=== PATIENT | male | born 2000 | race Caucasian/White ===

== ENCOUNTER 2019-08-28 08:00 | Outpatient (CLI) | payer OTHER, SELFPAY ==
[2019-08-28 08:19] LABS: Basophils Absolute Auto 0.1 K/mm3 (0.0-0.1); Eosinophils Absolute Auto 0.1 K/mm3 (0-0.3); Eosinophils Percent Auto 1.6 % (0-4.4); Hematocrit 45.9 % (42.0-52.0); Hemoglobin 15.9 g/dL (14.0-18.0); Immature Granulocyte Absolute 0.01 K/mm3 (0.00-0.031); Immature Granulocyte Percent A 0.2 % (0-0.5); Lymphocytes Absolute Auto 1.81 K/mm3 (0.9-3.2); Lymphocytes Percent Auto 37.1 % (18.3-44.2); Mean Corpuscular HGB Conc 34.6 g/dl (32-36); Mean Corpuscular Hemoglobin 31.1 pg (26-34); Mean Corpuscular Volume 89.8 fl (80-100); Monocytes Absolute Auto 0.6 K/mm3 (0.1-0.6); Monocytes Percent Auto 11.5 % (2.6-8.5); Neutrophils Absolute Auto 2.4 K/mm3 (1.3-6.7); Neutrophils Percent Auto 48.6 % (45.5-73.1); Platelet Count Result 181 k/mm3 (150-375); Red Blood Count 5.11 M/mm3 (4.6-6.20); Red Cell Distribution Width 11.6 % (11.5-14.5); White Blood Count 4.9 K/mm3 (4.5-10.0)
[2019-08-28 08:35] LABS: Alanine Aminotransferase 15 U/L (4-50); Albumin Level 4.8 g/dL (3.5-5.1); Alkaline Phosphatase 46 U/L (38-126); Aspartate Amino Transferase 27 U/L (17-59); Bilirubin,Total 2.3 mg/dL (0.2-1.3); Blood Urea Nitrogen 17 mg/dL (9-20); Calcium 9.4 mg/dL (8.4-10.2); Carbon Dioxide 28 mmol/L (22-30); Chloride 104 mmol/L (98-107); Cholesterol 202 mg/dL (0-200); Estimated Glomerular Filt Rate > 60; Glucose 98 mg/dL (75-110); HDL Direct 41 mg/dL; Potassium 3.9 mmol/L (3.4-5.0); Sodium 140 mmol/L (137-145); Triglycerides 47 mg/dL (<150)
[2019-08-28 08:46] LABS: LDL Cholesterol Direct 137 mg/dL
== END 2019-08-28 08:01 | disposition home or self-care (01) ==
DX: Z00.00 Encounter for general adult medical examination without abnormal findings (principal); Z83.49 Family history of other endocrine, nutritional and metabolic diseases
CPT/HCPCS: 36415; 80053; 80061; 85025

== ENCOUNTER 2019-09-28 11:19 | Emergency (ER) | payer OTHER, SELFPAY ==
[2019-09-28 11:38] VITALS: BP 138/66; PULSE 72; RESP 16; TEMP 37.4; O2SAT 99
--- NOTE | 2019-09-28 11:48 | ED.URI ---
HPI - URI/Sore Throat General Chief Complaint: Upper Respiratory Infection Stated Complaint: sore throat Time Seen by Provider: 09/28/19 11:48 Source: patient Mode of arrival: ambulatory Limitations: no limitations History of Present Illness HPI Narrative: Bruno Doyle is a 18 yo male with a PMH of borderline high cholesterol who comes with severe sore throat x 5 days- is getting worse and hard for him to swallow. States that he has had strep numerous times in the past Related Data Allergies Allergy/AdvReac Type Severity Reaction Status Date / Time No Known Allergies Allergy Verified 05/19/11 12:46 Review of Systems Review of Systems: Narrative: CONSTITUTIONAL: Denies fever, chills, sweats. EYES: Denies visual changes, redness, discharge. ENT: Denies rhinorrhea, congestion, has sore throat, no otalgia. CARDIOVASCULAR: Denies chest pain, palpitations, edema. RESPIRATORY: Denies dyspnea, wheezing, cough GASTROINTESTINAL: Denies abdominal pain, nausea, vomiting, diarrhea. GENITOURINARY: Denies dysuria, hematuria, abnormal discharge SKIN: Denies rash or itching. NEUROLOGIC: Denies numbness, or focal weakness. PSYCHIATRIC: Denies anxiety or depression. [facility] Family History Family History Other High cholesterol Social History Social History (Updated 09/28/19 @ 12:00 by Janice Reynoso CNP) Smoking status: Never smoker Alcohol intake: current Comments At time of signature, I agree with nursing past medical, surgical, social and family history. There is no relevant family history pertinent to the presenting complaint. Exam Narrative: Exam Narrative: GENERAL: This is a well-nourished, well-developed patient, in mild distress. HEAD: normocephalic, atraumatic. EYES:Sclera clear/white. Vision is grossly intact. EARS: External ears normal, auditory canals clear and without drainage, TMs normal without perforation. Hearing grossly intact. NOSE: External nose normal without nasal discharge, nares without redness, no rhinorrhea. THROAT: Mucous membranes moist, posterior pharynx erythematous with tonsilar swelling NECK: Neck supple, non-tender CARDIOVASCULAR: Regular rate and rhythm without murmurs, gallops, or rubs. RESPIRATORY: Clear to auscultation. Breath sounds equal bilaterally. No wheezes, rales, or rhonchi. GASTROINTESTINAL: Abdomen soft, non-tender, SKIN: warm, intact with no suspicious lesions or rash, good texture and turgor. NEURO: awake, alert, and oriented to person, place and time. There were no obvious focal neurologic abnormalities. Steady gait EXTREMITIES: Normal range of motion. BACK: Nontender without deformity Course Course Emergency Course: Strep test-negative Prednisone and penicillin started- directions given to pt- TAKE ALL ANTIBIOTIC GIVEN. CALL PRIMARY MD TODAY AND SCHEDULE FOLLOW UP APPOINTMENT INCREASE FLUIDS MAY TAKE TYLENOL (NO MORE THAN 4,000MGS DAILY) EVERY 4-6 HOURS AND/OR IBUPROFEN (TAKE WITH FOOD) EVERY 6-8 HOURS NEEDED FOR FEVER OR PAIN WASH YOUR HANDS TO PREVENT SPREADING OF ILLNESS Vital Signs Vital signs: Vital Signs Temperature 99.3 F 09/28/19 11:38 Pulse Rate 72 09/28/19 11:38 Respiratory Rate 16 09/28/19 11:38 Blood Pressure 138/66 09/28/19 11:38 Pulse Oximetry 99 09/28/19 11:38 Temperature 99.3 F 09/28/19 11:38 Pulse Rate 72 09/28/19 11:38 Respiratory Rate 16 09/28/19 11:38 Blood Pressure 138/66 09/28/19 11:38 Pulse Oximetry 99 09/28/19 11:38 MDM - URI/Sore Throat Differential Diagnosis Differential diagnosis: Likely upper respiratory infection, bronchitis, pharyngitis and other Lab Data Labs: Strep Screen Presumptive Negative *(Reference Range: Negative)* Discharge Plan Discharge Clinical Impression: Pharyngitis Qualifiers: Pharyngitis/tonsillitis etiology: unspecified etiology Qualified Code(s): J02.9 - Acute pharyn
== END 2019-09-28 12:08 | disposition home or self-care (01) ==
PROVIDERS: Emergency Provider Nurse Practitioner; PCP Nurse Practitioner Family
DX: J02.9 Acute pharyngitis, unspecified (principal)
CPT/HCPCS: 87081; 87880; 99213; G0463

== ENCOUNTER 2019-11-21 09:08 | Outpatient (CLI) | payer OTHER, SELFPAY ==
[2019-11-21 10:03] LABS: Alanine Aminotransferase 33 U/L (4-50); Albumin Level 4.6 g/dL (3.5-5.1); Alkaline Phosphatase 38 U/L (38-126); Anion Gap 6 mmol/L (8-16); Aspartate Amino Transferase 38 U/L (17-59); Bilirubin,Total 1.1 mg/dL (0.2-1.3); Blood Urea Nitrogen 21 mg/dL (9-20); Calcium 9.1 mg/dL (8.4-10.2); Carbon Dioxide 28 mmol/L (22-30); Chloride 105 mmol/L (98-107); Estimated Glomerular Filt Rate > 60; Glucose 95 mg/dL (75-110); Potassium 4.3 mmol/L (3.4-5.0); Sodium 139 mmol/L (137-145)
== END 2019-11-21 09:09 | disposition home or self-care (01) ==
DX: R89.9 Unspecified abnormal finding in specimens from other organs, systems and tissues (principal)
CPT/HCPCS: 36415; 80053

== ENCOUNTER 2020-05-29 09:21 | Outpatient (CLI) | payer OTHER, SELFPAY ==
[2020-05-29 10:03] LABS: Cholesterol 225 mg/dL (0-200); HDL Direct 41 mg/dL; Triglycerides 88 mg/dL (<150)
[2020-05-29 10:15] LABS: LDL Cholesterol Direct 141 mg/dL
== END 2020-05-29 09:22 | disposition home or self-care (01) ==
DX: E78.5 Hyperlipidemia, unspecified (principal)
CPT/HCPCS: 36415; 80061

== ENCOUNTER 2021-04-11 13:54 | Outpatient (CLI) | payer OTHER, SELFPAY ==
[2021-04-11 14:47] LABS: Basophils Absolute Auto 0.1 K/mm3 (0.0-0.1); Basophils Percent Auto 1.1 % (0.2-1.2); Eosinophils Absolute Auto 0.1 K/mm3 (0-0.3); Eosinophils Percent Auto 1.7 % (0-4.4); Hematocrit 43.5 % (42.0-52.0); Hemoglobin 15.1 g/dL (14.0-18.0); Lymphocytes Absolute Auto 2.01 K/mm3 (0.9-3.2); Lymphocytes Percent Auto 42.3 % (18.3-44.2); Mean Corpuscular HGB Conc 34.7 g/dl (32-36); Mean Corpuscular Hemoglobin 31.5 pg (26-34); Mean Corpuscular Volume 90.8 fl (80-100); Mean Platelet Volume 10.7 fl (7.4-10.4); Monocytes Absolute Auto 0.5 K/mm3 (0.1-0.6); Monocytes Percent Auto 10.3 % (2.6-8.5); Neutrophils Absolute Auto 2.1 K/mm3 (1.3-6.7); Neutrophils Percent Auto 44.6 % (45.5-73.1); Platelet Count Result 175 k/mm3 (150-375); Red Blood Count 4.79 M/mm3 (4.6-6.20); Red Cell Distribution Width 11.4 % (11.5-14.5); White Blood Count 4.8 K/mm3 (4.5-10.0)
[2021-04-11 14:51] LABS: Alanine Aminotransferase 23 U/L (4-50); Albumin Level 4.8 g/dL (3.5-5.1); Alkaline Phosphatase 30 U/L (38-126); Anion Gap 3 mmol/L (8-16); Aspartate Amino Transferase 31 U/L (17-59); Bilirubin,Total 1.4 mg/dL (0.2-1.3); Blood Urea Nitrogen 14 mg/dL (9-20); Calcium 9.3 mg/dL (8.4-10.2); Carbon Dioxide 29 mmol/L (22-30); Chloride 104 mmol/L (98-107); Cholesterol 239 mg/dL (0-200); Estimated Glomerular Filt Rate > 60; Glucose 90 mg/dL (65-110); HDL Direct 42 mg/dL; Potassium 4.1 mmol/L (3.4-5.0); Sodium 136 mmol/L (137-145); Triglycerides 54 mg/dL (<150)
[2021-04-11 15:02] LABS: LDL Cholesterol Direct 156 mg/dL
== END 2021-04-11 13:55 | disposition home or self-care (01) ==
LOC: ANHLAB 13:56
DX: Z00.00 Encounter for general adult medical examination without abnormal findings (principal); E78.5 Hyperlipidemia, unspecified
CPT/HCPCS: 36415; 80053; 80061; 85025

== ENCOUNTER 2021-09-30 15:26 | Outpatient (CLI) | payer OTHER, SELFPAY | END 2021-09-30 15:27 | disposition home or self-care (01) | DX: Z11.1 Encounter for screening for respiratory tuberculosis (principal) | CPT/HCPCS: 36415; 86480 ==

== ENCOUNTER 2021-10-08 16:02 | Outpatient (CLI) | payer OTHER, SELFPAY ==
[2021-10-10 13:31] LABS: NIL 0.03 IU/mL; Quantiferon TB Plus, 1T NEGATIVE (NEGATIVE)
== END 2021-10-08 16:03 | disposition home or self-care (01) ==
LOC: ANHLAB 16:05
DX: Z11.1 Encounter for screening for respiratory tuberculosis (principal)
CPT/HCPCS: 36415; 86480

== ENCOUNTER 2022-06-12 17:40 | Emergency (ER) | payer OTHER, SELFPAY ==
[2022-06-12 17:50] VITALS: BP 125/64; PULSE 74; RESP 16; TEMP 37.2; O2SAT 99
--- NOTE | 2022-06-12 18:04 | ED.WOUNDLAC ---
HPI - Wound/Laceration General Chief Complaint: Skin/Abscess/Foreign Body Stated Complaint: injury Time Seen by Provider: 06/12/22 18:04 Source: patient, RN notes reviewed and old records reviewed Mode of arrival: ambulatory Limitations: no limitations History of Present Illness HPI narrative: 21-year-old male presents to the [facility] with concerns of being scratched by his cat to his forehead and underneath right eye. Patient states that he had taken cat to the vet. Happened about 30 minutes prior to arrival Last tetanus was October of 2021 Patient tetanus UTD: Yes Related Data Allergies Allergy/AdvReac Type Severity Reaction Status Date / Time No Known Allergies Allergy Verified 06/12/22 17:58 Review of Systems Review of Systems: All systems reviewed & are unremarkable except as noted in HPI and below Constitutional: Constitutional: Reports no additional constitutional complaints Eyes: Eyes: Reports no additional eye complaints ENT: Reports system reviewed and no additional complaints, except as documented Cardiovascular: Cardiovascular: Reports no additional cardiovascular complaints, Denies chest pain and Denies dyspnea Respiratory: Respiratory: Reports no additional respiratory complaints, Denies chest congestion, Denies cough and Denies dyspnea Gastrointestinal: Gastrointestinal: Reports no additional gastrointestinal complaints, Denies abdominal pain, Denies nausea and Denies vomiting Musculoskeletal: Musculoskeletal: Reports no additional musculoskeletal complaints Integumentary/Breasts: Skin/Breast: Reports as per HPI Neurologic: Reports system reviewed and no additional complaints, except as documented Psychiatric: Psychiatric: Reports no additional psychiatric complaints Allergic/Immunologic: Allergic/Immunologic: Reports no additional allergic/immunologic complaints PMFSH Family History Family History Other High cholesterol Social History Social History Smoking status: Never smoker Alcohol intake: current Comments At the time of my signature, I reviewed and agree with the nursing past medical, surgical, social, and family history. There is no relevant family history pertinent to the patient complaint. Exam Const: General: cooperative, healthy appearing, comfortable, no acute distress, well developed, alert and well nourished Nutritional Appearance: well nourished Orientation/consciousness: patient oriented x3 Limitations: no limitations HENMT: Head: normal to inspection Ears: hearing grossly normal bilaterally and external ears normal Face/Nose/Sinus: Normal external nose present, Normal nares present, Normal nasal mucous membranes and turbinates present and normal facial exam Face and sinus: normal facial exam Mouth: Yes Normal oral and palatal mucosa present, Yes lip normal and Yes moist mucous membranes Throat: posterior oropharynx normal and uvula midline Eyes: General: appearance normal, both eyes and all related structures Alignment and Position: alignment normal Periorbital: periorbital findings normal Conjunctivae: conjunctivae normal Pupils: Equal, round and reactive pupils present EOM: EOMs intact bilaterally Neck: Neck: normal visual inspection, full ROM, no lymphadenopathy and no meningeal signs Chest: Chest palpation & inspection: normal inspection of the chest Resp: Effort & Inspection: normal respiratory effort and able to speak in complete sentences Auscultation: clear to auscultation bilaterally, no crackles, no rales, no rhonchi and no wheezes Cardio: Rate: regular rate Rhythm: regular rhythm Back/Spine/Pelvis: Cervical Spine: cervical ROM normal Thoracic/Lumbar Spine: No thoracic spinal tenderness Skin: General skin exam: normal color and no rashes or lesions noted Lesions: no lesions Rashes: no rashes Wounds: no wounds Other: Three scratches
== END 2022-06-12 18:31 | disposition home or self-care (01) ==
PROVIDERS: Emergency Provider Nurse Practitioner
DX: S00.81XA Abrasion of other part of head, initial encounter (principal); S01.411A Laceration without foreign body of right cheek and temporomandibular area, initial encounter; W55.03XA Scratched by cat, initial encounter
CPT/HCPCS: 99213; G0463

== ENCOUNTER 2022-08-03 08:44 | Emergency (ER) | payer OTHER, SELFPAY ==
[2022-08-03 08:51] VITALS: BP 126/87; PULSE 62; RESP 16; TEMP 36.7; O2SAT 100
--- NOTE | 2022-08-03 09:44 | ED.URI ---
HPI - URI/Sore Throat General Chief Complaint: Upper Respiratory Infection Stated Complaint: sore throat,congestion,ear pain,sinus pressure Time Seen by Provider: 08/03/22 09:44 Source: patient and RN notes reviewed Mode of arrival: ambulatory Limitations: no limitations History of Present Illness HPI Narrative: 21 y/o male presented for c/o cough, nasal congestion and drainage, sinus pressure and fatigue for 3 days. Denies sob, wheezing, vomiting, fever or chills. Taking multiple otc meds for symptoms. Denies sick contacts. MD elicited complaint: cough Related Data Allergies Allergy/AdvReac Type Severity Reaction Status Date / Time No Known Allergies Allergy Verified 08/03/22 08:53 Review of Systems Review of Systems: CONSTITUTIONAL: denies malaise, denies chills, sweats, fever EYES: Denies visual changes, redness, or discharge ENT: Reports rhinorrhea, congestion, sinus pain CARDIOVASCULAR: Denies chest pain, palpitations, edema RESPIRATORY: Reports cough, post nasal drainage. Denies dyspnea GASTROINTESTINAL: Denies abdominal pain, nausea, vomiting, diarrhea SKIN: Denies rash or itching MUSCULOSKELETAL: Denies myalgia [facility] Past Medical History Medical History (Updated 08/03/22 @ 14:06 by Kathy Harp APRN) No pertinent past medical history Family History Family History Other High cholesterol Social History Social History Smoking status: Never smoker Alcohol intake: current Exam Narrative: GENERAL: well-appearing HEAD: Normocephalic EYES: PERRLA, conjunctivae clear ENT: Mucous membranes moist. TMs pearly herrera with normal light reflex bilaterally; no tragal tenderness. Oropharynx erythematous without lesions or exudate, no drooling, no hoarseness, no trismus, uvula midline. No tripod positioning, muffled voice, soft palate or pharyngeal wall bulging NECK: Supple. No lymphadenopathy CHEST: Clear to auscultation, breath sounds equal. No wheezing, rhonchi, rales, or stridor. No respiratory distress, speaks in full sentences. HEART: Regular rate and rhythm. No murmur heard. SKIN: Warm, dry, no rash. NEURO: Alert and oriented x3. PSYCH: Normal mood and affect Course Course Emergency Course: Patient is aware of diagnosis, understands and agrees to treatment plan. Anticipatory guidance given. Patient agrees to follow-up as directed and is aware of reasons to seek care at the emergency department. Portions of this record may have been created with voice recognition software Level of Care: Express Care Visit Vital Signs Vital signs: reviewed MDM - URI/Sore Throat MDM Narrative Medical decision making narrative: Results of negative COVID and strep reviewed with patient. Discussed physical exam findings. Advised supportive measures and signs/symptoms to go to the ER. Pt is appropriate for outpt treatment and f/u. Differential Diagnosis Differential diagnosis: Likely upper respiratory infection, sinusitis and viral infection Lab Data Labs: Lab Results 08/03/22 Range/Units 08:52 POC SARS CoV-2 Ag Negative (Negative) Strep Screen Presumptive Negative *(Reference Range: Negative)* Discharge Plan Discharge Clinical Impression: Upper respiratory infection Patient Disposition: Home, Self-Care Condition: Stable Instructions: Upper Respiratory Infection (ED) Additional Instructions: COVID test negative today Rapid strep swab was negative today You will be notified in a few days if the culture comes back positive for strep, and appropriate antibiotics will be called in at that time. if symptoms are due to a viral illness, it is not treated with antibiotics. Viral symptoms can be present for up to 10-14 days. Recommend Flonase spray and Zyrtec for sinus congestion Cough syrup may c
== END 2022-08-03 09:55 | disposition home or self-care (01) ==
PROVIDERS: Emergency Provider Nurse Practitioner Family
DX: J06.9 Acute upper respiratory infection, unspecified (principal); Z20.822 Contact with and (suspected) exposure to COVID-19
CPT/HCPCS: 87081; 87426; 87880; 99213; C9803; G0463

== ENCOUNTER 2023-08-26 12:26 | Outpatient (CLI) | payer OTHER, SELFPAY ==
[2023-08-26 13:02] LABS: Basophils Absolute Auto 0.1 K/mm3 (0.0-0.1); Basophils Percent Auto 1.1 % (0.2-1.2); Eosinophils Absolute Auto 0.1 K/mm3 (0-0.3); Eosinophils Percent Auto 1.5 % (0-4.4); Hematocrit 44.5 % (42.0-52.0); Hemoglobin 15.3 g/dL (14.0-18.0); Immature Granulocyte Absolute 0.01 K/mm3 (0.00-0.031); Immature Granulocyte Percent A 0.2 % (0-0.5); Lymphocytes Absolute Auto 1.34 K/mm3 (0.9-3.2); Lymphocytes Percent Auto 28.6 % (18.3-44.2); Mean Corpuscular HGB Conc 34.4 g/dl (32-36); Mean Corpuscular Hemoglobin 31.5 pg (26-34); Mean Corpuscular Volume 91.8 fl (80-100); Mean Platelet Volume 10.7 fl (7.4-10.4); Monocytes Absolute Auto 0.4 K/mm3 (0.1-0.6); Monocytes Percent Auto 8.7 % (2.6-8.5); Neutrophils Absolute Auto 2.8 K/mm3 (1.3-6.7); Neutrophils Percent Auto 59.9 % (45.5-73.1); Platelet Count Result 166 k/mm3 (150-375); Red Blood Count 4.85 M/mm3 (4.6-6.20); Red Cell Distribution Width 11.9 % (11.5-14.5); White Blood Count 4.7 K/mm3 (4.5-10.0)
[2023-08-26 13:21] LABS: Alanine Aminotransferase 47 U/L (6-50); Albumin Level 4.9 g/dL (3.5-5.1); Alkaline Phosphatase 35 U/L (38-126); Anion Gap 8 mmol/L (4-12); Aspartate Amino Transferase 63 U/L (17-59); Bilirubin,Total 1.7 mg/dL (0.2-1.3); Blood Urea Nitrogen 20 mg/dL (9-20); Calcium 9.7 mg/dL (8.4-10.2); Carbon Dioxide 27 mmol/L (22-30); Chloride 105 mmol/L (98-107); Cholesterol 238 mg/dL (0-200); Estimated Glomerular Filt Rate > 60; Glucose 92 mg/dL (65-110); HDL Direct 49 mg/dL; Potassium 4.4 mmol/L (3.4-5.0); Sodium 140 mmol/L (137-145); Triglycerides 39 mg/dL (<150)
[2023-08-26 13:32] LABS: LDL Cholesterol Direct 156 mg/dL
[2023-08-26 13:50] LABS: Free T4 Free Thyroxine 1.03 ng/mL (0.78-2.19); Thyroid Stimulating Hormone 0.762 uIU/mL (0.465-4.680)
[2023-08-29 18:49] LABS: Testosterone Total 443 ng/dL (250-1100)
== END 2023-08-26 12:27 | disposition home or self-care (01) ==
DX: Z00.00 Encounter for general adult medical examination without abnormal findings (principal); R53.83 Other fatigue
CPT/HCPCS: 36415; 80053; 80061; 84403; 84439; 84443; 85025

== ENCOUNTER 2024-09-20 09:50 | Outpatient (CLI) | payer OTHER, SELFPAY ==
--- OUTSIDE RECORDS SUMMARY | 2024-09-20 09:59 | XMS_ITS | Referral Summary ---
Author Organization [facility] [place] [place] [address] [place] [address] Care Team Providers Care Cost Estimating Clerk Name Role Phone Mendez Rahman Primary Care Provider Encounters Date Type Department Care Team Description 08/21/2024 Orders Only [facility] Medical [facility] Family Medicine [address] [place] [phone] Mendez Rahman PA 08/21/2024 Telephone [facility] Family Medicine [address] [place] [phone] Mendez Rahman PA Medical Question/Miscellaneous from Last 3 Months Allergies No known active allergies Medications rosuvastatin (CRESTOR) 10 mg tablet Take 1 tablet (10 mg total) by mouth daily 90 tablet 3 09/09/2023 Active Active Problems No known active problems Immunizations Immunization Administration Dates Next Due DTaP, Unspecified 11/27/2003, 0,05/09/1999,02/28,1998 Hep A, Pediatric 10/10/2013,09/17/2012 Hep B, Unspecified 02/02/2000,02/28/1999, 999 HiB 02/02/2000,02/28/1999,1998 Influenza LAIV (Nasal) 12/07/2011 Influenza, Quadrivalent, Spl it, Preservative Free, Intramuscular 03/20/2021,01/05/2019,03/01/2017,12/25,12/13/2013,12/21/2012 Influenza, Unspecified 05/16/2023(Deferr ed: Patient Refused),05/15/2022(Deferred: Patient Refused),12/20/2009,11/28/2008 MMR 10/28/2004,11/05/1999 Meningococcal B, unspecified 06/28/2010 Meningococcal MCV4P (Menactra) 10/28/2016 Pneumococcal Conjugate PCV 13 02/21/2001 Polio, Unspecified 10/28/2004, 0,02/28/1999,12/31 Tdap 03/20/2021,06/28/2010 Varicella 09/17/2012,11/05/1999 Social History Tobacco Use Types Packs/Day Years Used Date Smoking Tobacco: Some Days Cigarettes Tobacco Cessation:Ready to Q uit: Not Asked; Counseling Given: Not Answered PHQ-2 Answer Date Recorded PHQ-2 Total Score (If total score is 3 or more points, staff should administer the PHQ-9) 0 08/26/2023 Personal Safety Answer Date Recorded Getting School Help Needed Not on file 08/18 Sex and Gender Information Value Date Recorded Sex Assigned at Not on file 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 Gender Identity Not on file Sexual Orientation Not on file Last Filed Vital Signs Vital Sign Reading Time Taken Comments Blood Pressure 112/84 09/09/2023 8:01 AM CDT Pulse 61 09/09/2023 8:01 AM CDT Temperature - - Respiratory Rate 18 09/09/2023 8:01 AM CDT Oxygen Saturation 99% 09/09/2023 8:01 AM CDT Inhaled Oxygen Concentration - - Weight 69.4 kg (153 lb) 09/09/2023 8:01 AM CDT Height 180.3 cm (5' 11) 09/09/2023 8:01 AM CDT Body Mass Index 21.34 09/09/2023 8:01 AM CDT Plan of Treatment Not on file Insurance [facility] Care Teams Cost Estimating Clerk Relationship Specialty Start Date End Date Mendez Rahman PA [address] [address] PCP - General Family Medicine 08/26/23
--- OUTSIDE RECORDS SUMMARY | 2024-09-20 10:00 | XMS_ITS | Clinical Summary ---
Author Organization [facility] Address On license of [facility] [place] [address] Care Team Providers Care Kiln Operator Name Role Phone Unavailable Primary Care Provider Unavailabl e Social History Tobacco Use Types Packs/Day Years Used Date Smoking Tobacco: Never Assessed Sex and Gender Information Value Date Recorded Sex Assigned at Not on file Legal Sex Male 6:30 PM CDT Gender Identity Not on file Sexual Orientation Not on file Plan of Treatment Health Maintenance Due Date Last Done Comments Annual Physical 2001 HPV Vaccines (1 - Male 3-dos e series) 2013 Hepatitis C 2016 DTaP, Tdap and Td Vaccines ( 1 - Tdap) 2017 Hepatitis B Vaccines (1 of 3 - 19+ 3-dose series) 2017 COVID-19 Vaccine ( - 2023-2 5 season) 2023 Meningococcal B Vaccine Aged Out No l onger eligible based on patient's age to complete this topic Meningococcal Vaccine Aged Out No rafael mohan eligible based on patient's age to complete this topic Pneumococcal Vaccine: Pediat rics (0 to 5 Years) and At-Risk Patients (6 to 49 Years) Aged Out No longer eligible b ased on patient's age to complete this topic RSV Immunizations Under 20 Months Aged Out No longer eligible based on patient's age to complete this topic
--- OUTSIDE RECORDS SUMMARY | 2024-09-20 10:00 | XMS_ITS | Clinical Summary ---
Author Organization [facility] Address [address] [place] [address] Care Team Providers Care Engineer Operations And Maintenance Name Role Phone Unavailable Primary Care Provider Unavailabl e Source Comments [facility],non-owned Affiliates and Associated Physician Practices is amultiple site organization consisting of ambulatory clinics and hospital sitesin [place], [place], [place] and [place]. This disclosure is being madepursuant to the Care Everywhere program and may not contain all information available regarding this patient. Last updated 17.[facility] Allergies No known active allergies Medications * Be aware that medications may not be up to date on this document. Alwaysverify current medications with the patient. No known medications Active Problems Problem Noted Date Diagnosed Date Familial hyperlipidemia 06/28/2010 Overview (07/03/2010): Total cholesterol 238, LDL 134, HDL 50, Triglycerides 72 AST 33, ALT 26, Alk Phos 212 TSH 2.85, FBG 88 Instituting lifestyle changes, will recheck in 6 months. Well child visit 06/28/2010 Overview (10/25/2014): 9 yo 06/28/10 10 yo 08/24/11 11 yo 09/17/12 12 yo 10/10/13 13 yo 10/11/14 Screening for condition 03/19/2009 Overview (12/13/2014): AB positive screen - normal Resolved Problems Problem Noted Date Diagnosed Date Resolved Date Gastritis 09/09/2009 07/03/2010 Streptococcal pharyngitis 05/20/2009 Overview (05/20/2009): 05/20/09 amox Immunizations Immunization Administration Dates Next Due INFLUENZA VACCINE, TRIV. (AF LURIA, FLUZONE TRIVALENT; 6MO+) (IIV3) 12/20/2009 DPT 11/27/2003, 0,05/09/1999,02/28,1998 HEP A PEDS 2 DOSE 10/10/2013,09/17/2012 HEP B VACCINE, PED/ADOL 02/04/2000,02/28/1999, HIB BOOSTER 02/02/2000,02/28/1999,1998 INFLUENZA VACCINE 11/28/2008 MENINGOCOCCAL ACWY (MCV4P) VAC IM 10/28/2016, MMR 10/28/2004,11/05/1999 PNEUMOCOCCAL CONJ, PEDS 02/21/2001 POLIO IPV 10/28/2004, 0,02/28/1999,12/31 PPD 11/27/2003,04/15/1999 TDAP (7yrs+) 06/28/2010 VARICELLA 09/17/2012,11/05/1999 Family History Medical History Relation Name Comments Coronary Artery Disease,premature <55 male Father 3-v CABG Dyslipidemia Father CAD (Coronary Artery Disease) Paternal Grandfather CABG Dyslipidemia Paternal Grandfather Dyslipidemia Paternal Uncle Relation Name Status Comments Father Paternal Grandfather Paternal Uncle Social History Tobacco Use Types Packs/Day Years Used Date Smoking Tobacco: Never Alcohol Use Standard Drinks/Week Comments No 0 (1 standard drink = 0.6 oz pur e alcohol) Sex and Gender Information Value Date Recorded Sex Assigned at Not on file Legal Sex Male 6:44 AM PET CARETAKER Gender Identity Not on file Sexual Orientation Not on file Last Filed Vital Signs Vital Sign Reading Time Taken Comments Blood Pressure 90/50 10/11/2014 2:38 PM CDT Pulse 72 04/28/2012 11:51 AM PET CARETAKER Temperature 37.1 C (98.7 F) 10/11/2014 2:38 PM CDT Respiratory Rate 14 04/28/2012 11:51 AM PET CARETAKER Oxygen Saturation - - Inhaled Oxygen Concentration - - Weight 65.5 kg (144 lb 6.4 oz) 10/11/2014 2:38 P M CDT Height 173.8 cm (5' 8.43) 10/11/2014 2:38 PM CD T Body Mass Index 21.68 10/11/2014 2:38 PM CDT Plan of Treatment Health Maintenance Due Date Last Done Comments HIV SCREENING 2013 HPV VACCINE (1 - Male 3-dose series) 2013 HEPATITIS C SCREENING 10/26/2016 DTAP/TDAP/TD VACCINES (7 - Td or Tdap) 06/28/2020 06/28/2010, 11/27/2003, 02/02/2000, Additional history exists COVID-19 VACCINE ( season) 2023 08/22/2021, 07/02/2020, 06/10/2020 DEPRESSION SCREENING 03/15/2024 INFLUENZA VACCINE (Season Ended) 2024 03/20/2021, 01/05/2019, 03/01/2017, Additional history exists ZOSTER VACCINE (1 of 2) 2048 HIB VACCINE Completed 02/02/2000, 02/12, 1998 HEPATITIS B VACCINE Completed 02/04/2000, 02/28/1999, 1998 PNEUMOCOCCAL VACCINE Completed 02/21/2001 MENINGOCOCCAL GROUPS A/C/Y/W VACCINE Completed 10/28/2016, 06/28/2010 MENINGOCOCCAL (Group B) VACCINE SHARED DECISION-MAKING Aged Out No longer eligible based on patient's age to complete this topic Goals Goal Patient Goal Type Associated Problems Recent Progress Patient-Stated? Author Use safety retraint in car Lifestyle On track( 015 2:39 PM CDT) Marv Arguello MA Insurance [facility] * Guarantor: BRUNO ZAMUDIO Account Type Relation to Patient Date of Phone Billing Address Personal/Family 2000 [address] [place] [id number]
--- OUTSIDE RECORDS SUMMARY | 2024-09-20 10:00 | XMS_ITS | Clinical Summary ---
Author Organization [facility] [address] [place] [address] Care Team Providers Care Order Dispatcher Name Role Phone Mendez Rahman Primary Care Provider [phone] Allergies No known active allergies Medications rosuvastatin (CRESTOR) 10 mg tablet Take 1 tablet (10 mg total) by mouth daily 90 tablet 3 09/09/2023 Active Active Problems No known active problems Encounters Date Type Department Care Team Description 08/21/[address] [facility] Medical [facility] Family Medicine [address] [place] [phone] Mendez Rahman PA 08/21/[address] [facility] Family Medicine [address] [place] [phone] Mendez Rahman PA Medical Question/Miscellaneous from Last 3 Months Immunizations Immunization Administration Dates Next Due DTaP, [...] Unspecified 10/28/2004, 0,02/28/1999,12/31 Tdap 03/20/2021,06/28/2010 Varicella 09/17/2012,11/05/1999 Surgical History Surgery Date Site/Laterality Comments WISDOM TOOTH EXTRACTION Family History Medical History Relation Name Comments Hyperlipidemia Father Stomach cancer Maternal Grandmother No Known Problems Mother Relation Name Status Comments Father Alive Maternal Grandmother Mother Alive Social History Tobacco Use Types Packs/Day Years [...] on file 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 Gender Identity Not on file Sexual Orientation Not on file Obstetrics History Last Filed Vital Signs Vital Sign Reading [...] 09/09/2023 8:01 AM CDT Plan of Treatment Health Maintenance Due Date Last Done Comments Hepatitis C Screening 1998 Pneumococcal vaccine <65 (2 of 2 - PPSV23) 2004 02/21/2001 HPV Vaccines (1 - Male 3-dos e series) 2013 Covid-19 Vaccine (4 - 2023-2 5 season) 2023 08/22/2021, 07/02/2020, 06/10/2020 Depression Screening 08/25/2024 08/26/2023 Regular Well Visit/Exam 18-64 09/08/2024 09/09/2023 Influenza Vaccine (Season Ended) 2024 03/20/2021, 01/05/2019, 03/01/2017, Additional history exists DTaP/Tdap/Td Vaccine (8 - Td or Tdap) 03/20/2031 03/20/2021, 06/28/2010, 11/27/2003, Additional history exists Hepatitis B Screening Completed 02/02/2000 , 02/28/1999, 1998 Varicella Vaccines Completed 09/17/2012, 11/05/1999 Insurance Care Teams Order Dispatcher Relationship Specialty Start Date End Date Mendez Rahman PA [address] [address] PCP - General Family Medicine 08/26/23
[2024-09-20 10:37] LABS: Hematocrit 46.4 % (42.0-52.0); Hemoglobin 15.7 g/dL (14.0-18.0); Immature Granulocyte Percent A 0.2 % (0-0.5); Lymphocytes Absolute Auto 1.99 K/mm3 (0.9-3.2); Mean Corpuscular HGB Conc 33.8 g/dl (32-36); Mean Corpuscular Hemoglobin 30.5 pg (26-34); Mean Corpuscular Volume 90.3 fl (80-100); Nucleated Red Blood Cells Absolute Auto 0.000 K/mm3 (0.0-0.012); Nucleated Red Blood Cells Perc 0.0 % (0.0-0.2); Platelet Count Result 184 k/mm3 (150-375); Red Blood Count 5.14 M/mm3 (4.6-6.20); White Blood Count 4.6 K/mm3 (4.5-10.0)
[2024-09-20 10:45] LABS: Alanine Aminotransferase 27 U/L (6-50); Albumin Level 4.9 g/dL (3.5-5.1); Alkaline Phosphatase 32 U/L (38-126); Anion Gap 9 mmol/L (4-12); Aspartate Amino Transferase 30 U/L (17-59); Bilirubin,Total 1.6 mg/dL (0.2-1.3); Blood Urea Nitrogen 20 mg/dL (9-20); Calcium 9.6 mg/dL (8.4-10.2); Carbon Dioxide 27 mmol/L (22-30); Chloride 103 mmol/L (98-107); Cholesterol 265 mg/dL (0-200); Estimated Glomerular Filt Rate > 60; Glucose 89 mg/dL (65-110); HDL Direct 48 mg/dL; Potassium 4.2 mmol/L (3.4-5.0); Sodium 139 mmol/L (137-145); Total Protein 8.2 g/dL (6.3-8.2); Triglycerides 56 mg/dL (<150)
[2024-09-20 11:15] LABS: Thyroid Stimulating Hormone 0.895 uIU/mL (0.465-4.680)
[2024-09-20 11:36] LABS: Free T4 Free Thyroxine 1.05 ng/dL (0.78-2.19)
== END 2024-09-20 09:51 | disposition home or self-care (01) ==
DX: Z00.00 Encounter for general adult medical examination without abnormal findings (principal); R53.83 Other fatigue; E78.2 Mixed hyperlipidemia
CPT/HCPCS: 36415; 80053; 80061; 84439; 84443; 85025